=== PATIENT | male | born 1960 | race Caucasian/White ===

== ENCOUNTER 2019-09-11 17:50 | Emergency (ER) | payer OTHER ==
[~2019-09-11] VITALS: Ht 185.4 cm; Wt 70.5 kg
[2019-09-11 18:21] VITALS: BP 117/68
[2019-09-11] MEDS ORDERED: erythromycin ophthalmic ointment 1gm tube EACHEYE ONE (18:55)
[2019-09-11] MEDS ORDERED: proparacaine 0.5% ophthalmic drops 15ml EACHEYE ONE (18:55)
[2019-09-11] MEDS ORDERED: ibuprofen tablet 400 MG TABLET PO ONE (19:40)
[2019-09-11] MEDS ORDERED: ERYT1OIN6 EACHEYE (19:41)
== END 2019-09-11 19:58 | disposition home or self-care (01) ==
LOC: ER 17:51
DX: S05.01XA Injury of conjunctiva and corneal abrasion without foreign body, right eye, initial encounter (principal); F17.200 Nicotine dependence, unspecified, uncomplicated; Z88.0 Allergy status to penicillin; Z79.2 Long term (current) use of antibiotics; X58.XXXA Exposure to other specified factors, initial encounter; Y93.89 Activity, other specified; Y92.89 Other specified places as the place of occurrence of the external cause; Y99.8 Other external cause status
CPT/HCPCS: 99284